=== PATIENT | female | born 1950 | race African-American/Black ===

== ENCOUNTER → 2017-08-19 | Outpatient (CLI) | payer OTHER ==
[~2017-08-19] VITALS: Ht 167.6 cm; Wt 64.4 kg
[~2017-08-19] MED LIST: FISH OIL 1,001000 M2 PO; KLOR-CON 1010 MEQ PO; LISINOPRIL40 MG PO; NORVASC5 MG PO; VITAMIN D2000 UNI1 PO; [UNRECOGNIZED DRUG - OTHER] PO
--- NOTE | ~2017-08-19 | S ---
[facility] [place] [address] SURGICAL PATH RPT PROCEDURE Name: KAVITA RODRIGUEZ Room #: REG [facility] Bradley#: [id number] Admission: 08/19/17 Date of : 50 Discharge: Report #: [id number] Path Case #: [id number] PATHOLOGY REPORT COLLECTION DATE: 08/19/2017 RECEIVED DATE: 08/19/2017 SUBMITTING PHYS: Dr. Jimmy Florence OTHER PHYS: Dr. Selma Brown SPECIMEN(S) RECEIVED: A.Ascending polyp B.Transverse polyps x2 * * * * * * * * * * * * FINAL DIAGNOSIS: A. Polyp, at ascending colon, endoscopic biopsy: - Tubular adenoma. - Negative for high-grade dysplasia. B. Polyp x2, at transverse colon, endoscopic biopsy: - Tubular adenoma identified in all fragments sampled. - Negative for high-grade dysplasia. (IUV:mayra; 08/20/2017) PATHOLOGIST: Pat Roth M.D. REPORT ELECTRONICALLY SIGNED BY: Pat Roth M.D. DATE/TIME: 08/20/2017 14:51 * * * * * * * * * * * * GROSS PATHOLOGY: A. Received in formalin labeled "Kavita Rodriguez, polyp at ascending colon" and consists of 2 ramesh-pink polypoid tissue fragment each averaging 0.4 cm. They are entirely submitted as A1. B. Received in formalin labeled "Gabriel Rodrigueza, polyp at transverse colon X2" and consists of 2 soft ramesh tissue fragments each averaging 0.3 cm. They are entirely submitted as B1. (ANGELINA; 08/19/2017) CLINICAL HISTORY: Screening, family history colon cancer INITIAL CPT CODE(S): A; 79236 B; 58104 Professional services performed by [employer] at [facility] [address] [place] [address] SURGICAL PATH RPT PROCEDURE Name: KAVITA RODRIGUEZ Room #: REG NOREEN Huerta#: [id number] Admission: 08/19/17 Date of : 50 Discharge: Report #: [id number] Path Case #: [id number] [address] [facility] , [place] [address] Technical services performed by [employer] at [address] [place] [address], [facility] [address] [address]. [place] [address] PHONE: [phone] DIRECTOR: Migue Perea M.D. * * * END OF REPORT * * *
--- NOTE | ~2017-08-19 | P ---
[facility] [place] [address] PROCEDURE REPORT Name: KAVITA RODRIGUEZ Room #: REG Nimisha Huerta#: [id number] Admission: 08/19/17 Attend Phys: Jimmy Nguyen Discharge: Date of : 50 Report #: [id number] THIS REPORT FOR: //name// CC: Jimmy Brown DATE OF SERVICE: 08/19/2017 PROCEDURE PERFORMED: Colonoscopy with biopsies. HISTORY OF PRESENT ILLNESS: The patient is a 67-year-old female who presents today for routine screening colonoscopy. Denies any symptoms. No family history of colon cancer. DESCRIPTION OF PROCEDURE: The risks and benefits of the procedure were explained to the patient, those risks including but not limited to bleeding, perforation, the risk of sedation. She understood these risks and gave informed consent. Sedation was given using propofol per Anesthesia. Next, a digital rectal exam was initially performed, which was normal. Next, using a standard Fujinon colonoscope, the scope was placed in the patient's anus and advanced under direct vision to the cecum. The overall prep was excellent. The cecum and ileocecal valve were normal in appearance. In the ascending colon, there was a 5 mm sessile polyp. This was removed by snare cautery, otherwise normal. In the transverse colon, two 3-4 mm sessile polyps, both removed by cold forceps. Descending and sigmoid colon were normal. The rectal mucosa was normal. On retroflexion, no abnormalities were noted. The scope was then withdrawn and the procedure terminated. The patient tolerated the procedure well. IMPRESSION: 1. Three small colonic polyps. 2. Otherwise, normal colonoscopy. RECOMMENDATIONS: 1. Await biopsy results. 2. If polyps are adenomatous polyps, repeat in 5 years; if hyperplastic, repeat in 10 years. Thank you for allowing me to participate in her care. <ELECTRONICALLY SIGNED> By: Jimmy Florence MD 08/21/17 [id number] Jimmy Florence MD /nt
== END | disposition home or self-care (01) ==
LOC: GI 07:59
DX: Z12.11 Encounter for screening for malignant neoplasm of colon (principal); D12.2 Benign neoplasm of ascending colon; D12.3 Benign neoplasm of transverse colon; I10 Essential (primary) hypertension; G47.33 Obstructive sleep apnea (adult) (pediatric); Z90.710 Acquired absence of both cervix and uterus; Z87.891 Personal history of nicotine dependence; Z98.890 Other specified postprocedural states; Z88.2 Allergy status to sulfonamides; Z79.899 Other long term (current) drug therapy
CPT/HCPCS: 62110; 62900